=== PATIENT | male | born 1965 | race Caucasian/White ===

== ENCOUNTER 2019-09-15 12:22 | Emergency (ER) | payer SELFPAY ==
[~2019-09-15] VITALS: Ht 177.8 cm; Wt 104.5 kg
[2019-09-15 12:29] VITALS: Ht 177.8 cm; Wt 104.5 kg
[2019-09-15] MEDS ORDERED: LOPRESSOR25 MG (12:29)
[2019-09-15] MEDS ORDERED: MIDODRINE HCL2.5 MG (12:30)
[2019-09-15 12:51] LABS: HEMATOCRIT 44.3 % (42.0-54.0); HEMOGLOBIN 15.1 g/dL (13.5-17.5); LYMPHOCYTES 23.6 % (15-50); MCH 29.8 pg (26.0-34.0); MCHC 34.1 g/dL (31.0-37.0); MCV 87.5 fL (80.0-100.0); MEAN PLATELET VOLUME 8.7 fL (7.4-10.4); NEUTROPHILS 67.6 % (40-80); PLATELET COUNT 248 10x3/uL (130-400); RBC 5.06 10x6/uL (4.20-6.10); WBC 12.3 10x3/uL (4.8-10.8)
[2019-09-15 12:58] LABS: CALC OSMOLALITY 274 mosm/kg (275-300); CALCIUM 8.8 mg/dL (8.5-10.1); CARBON DIOXIDE 30.1 mmol/L (21.0-32.0); CHLORIDE - SERUM 101 mmol/L (98-107); GLUCOSE 124 mg/dL (74-106); SODIUM 136 mmol/L (136-145); UREA NITROGEN 17 mg/dL (7-18); eGFR NON AFRICAN AMERICAN 83 mL/min (90-120)
[2019-09-15 13:12] LABS: ALKALINE PHOSPHATASE 81 U/L (30-120); ALT (SGPT) 155 U/L (10-68); BILIRUBIN - TOTAL 0.48 mg/dL (0.2-1.3); CKMB 1.2 U/L (0.0-3.6); CREATINE KINASE 106 UL (21-232); MAGNESIUM - SERUM 2.1 mg/dL (1.8-2.4); PROTEIN - SERUM 7.6 g/dL (6.4-8.2)
[2019-09-15 13:14] LABS: TROPONIN-I < 0.017 ng/mL (0.000-0.060)
[2019-09-15] MEDS ORDERED: MECLIZINE HCL25 MG PO (13:39)
[2019-09-15 15:00] LABS: BILIRUBIN NEGATIVE (NEGATIVE); GLUCOSE NEGATIVE (NEGATIVE); KETONE NEGATIVE (NEGATIVE); NITRITE NEGATIVE (NEGATIVE); UROBILINOGEN NORMAL (NORMAL)
[2019-09-15 15:06] VITALS: BP 138/68
== END 2019-09-15 15:07 | disposition home or self-care (01) ==
LOC: D.ER 12:22
PROVIDERS: Emergency Medicine
DX: R42 Dizziness and giddiness (principal); I10 Essential (primary) hypertension